=== PATIENT | female | born 1965 | race Hispanic/Latino ===

== ENCOUNTER 2020-02-12 12:13 | Observation (INO) | payer MEDICAID, OTHER ==
--- OUTSIDE RECORDS SUMMARY | 2020-02-12 12:17 | XMS REPORT ---
:1965 Author Organization eClinicalWorks Care Team Providers Name Role Phone Deluca, Na Provider Role Unavailable Allergies, Adverse Reactions, Alerts Substance Reaction Event Type N.K.D.A. Info Not Available Non Drug Allergy Problems Problem Type Condition Code Onset Dates Condition Statu s Problem Hyperlipidemia E78.5 Active Problem Adult general medical exam Z00.00 A ctive Problem Essential hypertension I10 Activ e Problem Abnormal mammogram R92.8 Active Assessment Elevated LFTs R79.89 Active Problem Encounter for vision screening Z01.00 Active Problem Abnormal mammogram of right breast R92.8 Active Problem Hyponatremia E87.1 Active Problem Bilateral edema of lower extremity R60.0 Active Problem Abnormality of right breast on R92.8 Active screening mammogram Problem Elevated TSH R79.89 Active Assessment Schizoaffective disorder, F25.9 Ac tive unspecified type Assessment Essential hypertension I10 Activ e Assessment History of recent fall Z91.81 Activ e Assessment Right ankle swelling M25.471 Active Problem Schizoaffective disorder, F25.9 Ac tive unspecified type Assessment Hypothyroidism E03.9 Active Problem Hypothyroidism E03.9 Active Assessment Hyperlipidemia E78.5 Active Problem Obesity E66.9 Active Medications Medication Code Code Instructions Start End Status Dosage System Date Date Lisinopril [facility] 42875235860 40 MG Orally Active 1 ta blet Once a day Hydrochlorothiazide [facility] 63864546145 25 MG Orally Act evelin 1 tablet Once a day in the morning Olanzapine ND 12152169944 10 MG Orally Active 1 ta blet Once a day Levothyroxine Sodium [facility] 28994852333 25 MCG Orally A ctive 1 tablet Once a day in on an AM empty stomach in the morning Trazodone HCl [facility] 87619914835 50 MG Orally Active 1 tablet Once a day at bedtime as needed Lisinopril [facility] 47299450045 40 MG Orally Active 1 ta blet Once a day Levothyroxine Sodium [facility] 35208662685 50 MCG Orally A ctive 1 tablet Once a day on an empty stomach in the morning Divalproex Sodium [facility] 79331073665 500 MG Orally Acti ve 2 tablets Benztropine Mesylate ND 47611124687 1 MG Orally Sep 18, Act evelin 1 tablet twice a day as 2018 at needed for bedtime shaking Losartan [facility] 62039091551 50-12.5 MG Active 1 tablet Potassium-HCTZ Orally Once a day Levothyroxine Sodium [facility] 05627795210 50 MCG Orally A ctive 1 tablet Once a day on an empty stomach in the morning Metoprolol Tartrate [facility] 46865159012 50 MG Orally Act evelin 1 tablet Twice a day in AM and 2 tablets in PM Olanzapine [facility] 93553233146 5 MG Orally Active 1 tab let Once a day Results No Known Results Summary Purpose eClinicalWorks Submission
--- OUTSIDE RECORDS SUMMARY | 2020-02-12 12:17 | XMS REPORT | Continuity of Care Document ---
:1965 Author Organization [facility] t Address [address] [place] [id number] Care Team Providers Name Role Phone Unavailable Unavailable Unavailable Problems Condition Condition Condition Status Onset Resolution Last Treating Co mments Source Name Details Category Date Date Treatment Clinician Date Essential Essential Problem Active [facility] hypertensi hypertensi Fany kes - [facility] Hypothyroi Hypothyroi Problem Active [facility] Hyperlipid Hyperlipid Problem Active [facility] emia emia [facility] Schizoaffe Schizoaffe Problem Active [facility] ctive ctive [facility] - disorder, disorder, Franck mauricio unspecifie unspecifie l d type d type [facility] Adult Adult Problem Active [facility] - medical medical Memoria exam exam l Outpati ent Clinics Obesity Obesity Problem Active [facility] Bilateral Bilateral Problem Active [facility] edema of edema of [facility] - lower lower [facility] extremity extremity l Outpati ent Clinics Elevated Elevated Problem Active [facility] T[facility] Hyponatrem Hyponatrem Problem Active [facility] ia ia [facility] Abnormalit Abnormalit Problem Active [facility] y of right y of right Fany kes - breast on breast on Franck mauricio screening screening l mammogram mammogram Outp ati ent Clinics Encounter Encounter Problem Active [facility] for vision for vision Fany kes - screening screening Franck mauricio l [facility] Allergies, Adverse Reactions, Alerts This patient has no known allergies or adverse reactions. Medications Ordered Filled Start Stop Current Ordering Indication Dosage Frequency Signature Comments Components Source Medication Medication Date Date Medication? Clinician (SIG) Name Name Metoprolol Metoprolol Yes Na Deluca [address] [facility] Tartrate Tartrate 4-17 in AM and Fany kes - 00:00: 2 tablets Memoria 00 in PM l [facility] ent Clinics Hydrochloro Hydrochloro Yes Na Deluca [address] [facility] thiazide thiazide 3-16 in the [facility] - 00:00: morning Memoria 00 [facility] Lisinopril Lisinopril 2017-07 Yes Na Deluca [address] [facility] 1-16 [facility] - 00:00: Memoria 00 [facility] Benztropine Benztropine Yes Na Deluca [address] [facility] Mesylate Mesylate 2-21 at bedtime L ukes - 00:00: Memoria 00 [facility] Olanzapine Olanzapine Yes Na Deluca [address] [facility] Olanzapine Olanzapine Yes Na Deluca [address] [facility] Levothyroxi Levothyroxi Yes Na Deluca [address] [facility] ne Sodium ne Sodium on an Luke s - empty [facility] stomach [facility] Divalproex Divalproex Yes Na Deluca [address] [address] Sodium Sodium [facility] Losartan Losartan Yes Na Deluca [address] Potassium-H Potassium-H L [facility] Levothyroxi Levothyroxi Yes Na Deluca [address] [facility] ne Sodium ne Sodium on an Luke s - empty Memoria stomach in the [facility] Trazodone Trazodone Yes Na Deluca [address] [facility] HCl HCl at bedtime [facility] - as needed [facility] Lisinopril Lisinopril Yes Na Deluca [address] [facility] Immunizations Ordered Filled Immunization Date Status Comments [facility] e Immunization Name Name Afluria single dose Afluria single dose 2019-04-[address] [facility] 00[facility]00 [facility] Afluria Afluria 2018-06-[address] [facility] 00[facility]00 [facility] Procedures This patient has no known procedures. Encounters Start End Encounter Admission Attending Care Care Encounter Source Date/Time Date/Time Type Type Clinicians Facility Department ID 2020-02-10 2020-02-10 Outpatient [facility] [id number] [facility] 09:56:00 09:56:00 [place] [employer] [facility] Medicine Medicine Outpati ent Clinics 2020-01-11 2020-01-11 [facility] [id number] [facility] 10:20:00 10:20:00 [place] [employer] [facility] l Medicine Outpati ent Clinics 2019-12-14 2019-12-14 [facility] [id number] 14:00:00 14:00:00 [place] [employer] [facility] Medicine Outpati ent Clinics 2019-11-13 2019-11-13 [facility] [id number] 14:20:00 14:20:00 [place] [employer] [facility] l Medicine Outpati ent Clinics 2019-10-12 2019-10-12 [facility] [id number] 14:00:00 14:00:00 t [employer] [facility] Medicine Outpati ent Clinics 2019-09-07 2019-09-07 [facility] [id number] 10:39:00 10:39:00 t [employer] [facility] Medicine l Medicine Outpati ent Clinics 2019-07-07 2019-07-07 [facility] [id number] 08:40:00 08:40:00 t [employer] [facility] l Medicine Outpati ent Clinics 2019-06-04 2019-06-04 [facility] [id number] 10:39:00 10:39:00 t [employer] [facility] Medicine Medicine Outpati ent Clinics 2019-06-03 2019-06-03 [facility] [id number] [facility] 01:20:00 01:20:00 [place] [employer] [facility] l Medicine Outpati ent Clinics 2019-04-07 2019-04-07 [facility] [id number] 13:40:00 13:40:00 [place] [employer] [facility] Medicine Outpati ent Clinics 2018-11-07 2018-11-07 [facility] [id number] 13:39:00 13:39:00 [place] [employer] [facility] Medicine Outpati ent Clinics 2018-09-12 2018-09-12 [facility] [id number] 09:15:00 09:15:00 [place] [employer] [facility] Medicine Outpati ent Clinics 2018-06-13 2018-06-13 [facility] [id number] 08:45:00 08:45:00 t [employer] [facility] Medicine Outpati ent Clinics 2018-03-14 2018-03-14 [facility] [id number] 09:30:00 09:30:00 t [employer] [facility] Medicine Outpati ent Clinics 2018-02-13 2018-02-13 [facility] [id number] 09:15:00 09:15:00 t [employer] [facility] Medicine Outpati ent Clinics 2017-11-14 2017-11-14 [facility] [id number] 09:15:00 09:15:00 t [employer] [facility] Medicine Outpati ent Clinics Results This patient has no known results.
--- OUTSIDE RECORDS SUMMARY | 2020-02-12 12:17 | XMS REPORT ---
[...] Activ e Problem Abnormal mammogram R92.8 Active Problem Encounter for vision screening Z01.00 Active Problem Abnormal mammogram of right breast R92.8 Active Problem Hyponatremia E87.1 Active Problem Bilateral edema of lower extremity R60.0 Active Problem Abnormality of right breast on R92.8 Active screening mammogram Problem Elevated TSH R79.89 Active Assessment Schizoaffective disorder, F25.9 Ac tive unspecified type Assessment Essential hypertension I10 Activ e Problem Schizoaffective disorder, F25.9 Ac tive unspecified type Assessment Hypothyroidism E03.9 Active Problem Hypothyroidism E03.9 Active Assessment Hyperlipidemia E78.5 Active Problem Obesity E66.9 Active Medications Medication Code Code Instructions Start End Status Dosage System Date Date Losartan [facility] 43064533910 50-12.5 MG Active 1 tablet Potassium-HCTZ Orally Once a day Levothyroxine Sodium ND 81042712872 25 MCG Orally A ctive 1 tablet Once a day in on an AM empty stomach in the morning Metoprolol Tartrate ND 62736676566 50 MG Orally October Act evelin 1 tablet Twice a day , with food 2019 Levothyroxine Sodium ND 00885558629 50 MCG Orally A ctive 1 tablet Once a day on an empty stomach in the morning Benztropine Mesylate ND 98144787149 1 MG Orally Sep 18 Act evelin 1 tablet twice a day as 2018 at needed for bedtime shaking Trazodone HCl ND 06453500186 50 MG Orally Active 1 tablet Once a day at bedtime as needed Divalproex Sodium ND 95135476384 500 MG Orally Acti ve 2 tablets Levothyroxine Sodium [facility] 01719799191 50 MCG Orally A ctive 1 tablet Once a day on an empty stomach in the morning Lisinopril [facility] 01687919485 40 MG Orally Active 1 ta blet Once a day Hydrochlorothiazide [facility] 37120781562 25 MG Orally Act evelin 1 tablet Once a day in the morning Olanzapine [facility] 51122141365 5 MG Orally Active 1 tab let Once a day Lisinopril [facility] 56404854579 40 MG Orally Active 1 ta blet Once a day Olanzapine [facility] 60262115446 10 MG Orally Active 1 ta blet Once a day Results No Known Results Summary Purpose eClinicalWorks Submission
--- OUTSIDE RECORDS SUMMARY | 2020-02-12 12:17 | XMS REPORT ---
[...] disorder, F25.9 Ac tive unspecified type Assessment Hyperlipidemia E78.5 Active Problem Schizoaffective disorder, F25.9 Ac tive unspecified type Assessment Hypothyroidism E03.9 Active Problem Hypothyroidism E03.9 Active Assessment Essential hypertension I10 Activ e Problem Obesity E66.9 Active Medications Medication Code Code Instructions Start End Status Dosage System Date Date Lisinopril [facility] 18321764145 40 MG Orally Active 1 ta blet Once a day Olanzapine [facility] 50564851794 5 MG Orally Active 1 tab let Once a day Losartan [facility] 32950669119 50-12.5 MG Active 1 tablet Potassium-HCTZ Orally Once a day Olanzapine [facility] 93982358367 10 MG Orally Active 1 ta blet Once a day Levothyroxine Sodium ND 94963461958 50 MCG Orally A ctive 1 tablet Once a day on an empty stomach in the morning Benztropine Mesylate ND 05065163514 1 MG Orally Sep 18, Act evelin 1 tablet twice a day as 2018 at needed for bedtime shaking Metoprolol Tartrate ND 20422840862 50 MG Orally Act evelin 1 tablet Twice a day with food Trazodone HCl [facility] 77270828337 50 MG Orally Active 1 tablet Once a day at bedtime as needed Divalproex Sodium [facility] 29945177113 500 MG Orally Acti ve 2 tablets Levothyroxine Sodium [facility] 98775303968 50 MCG Orally A ctive 1 tablet Once a day on an empty stomach in the morning Lisinopril [facility] 67087387614 40 MG Orally Active 1 ta blet Once a day Hydrochlorothiazide [facility] 39012305468 25 MG Orally Act evelin 1 tablet Once a day in the morning Levothyroxine Sodium [facility] 02621708408 25 MCG Orally A ctive 1 tablet Once a day in on an AM empty stomach in the morning Results No Known Results Summary Purpose eClinicalWorks Submission
--- OUTSIDE RECORDS SUMMARY | 2020-02-12 12:17 | XMS REPORT ---
:1965 Author Organization eClinicalWorks Care Team Providers Name Role Phone Deluca, Na Provider Role Unavailable Allergies No Known Allergies Problems Problem Type Condition Code Onset Dates Condition Statu s Problem Hyperlipidemia E78.5 Active Problem Adult general medical exam Z00.00 A ctive Problem Essential hypertension I10 Activ e Problem Schizoaffective disorder, F25.9 Ac tive unspecified type Problem Hypothyroidism E03.9 Active Problem Obesity E66.9 Active Problem Abnormal mammogram R92.8 Active Problem Encounter for vision screening Z01.00 Active Problem Abnormal mammogram of right breast R92.8 Active Problem Hyponatremia E87.1 Active Problem Bilateral edema of lower extremity R60.0 Active Problem Abnormality of right breast on R92.8 Active screening mammogram Problem Elevated TSH R79.89 Active Medications No Known Medications Results No Known Results Summary Purpose eClinicalWorks Submission
[2020-02-12 14:10] LABS: Absolute Lymphocytes (CBC) 1.6 K/uL (0.7-4.9); Basophils % 0.8 % (0-1.3); Hematocrit 34.1 % (36.0-45.0); Lymphocytes % 35.2 % (15.3-44.8); MPV 8.9 fL (7.6-11.3); RBC Red Blood Cell Count 3.68 M/uL (3.86-4.86)
[2020-02-12 14:22] LABS: BUN Blood Urea Nitrogen 7 mg/dL (7-18); Bicarbonate 25 mmol/L (21-32); Glucose Level 114 mg/dL (74-106); Potassium 3.9 mmol/L (3.5-5.1); Sodium Level 128 mmol/L (136-145)
[2020-02-12 14:24] LABS: Urine Blood NEGATIVE (NEG); Urine Glucose NEGATIVE (NEG); Urine Protein NEGATIVE (NEG); Urine Specific Gravity 1.015 (1.005-1.030); Urine pH 7.5 (5.0-7.0)
[2020-02-12 14:34] LABS: Platelet Estimate ADEQ; Urine White Blood Cell Casts OK
[2020-02-12 14:35] LABS: Blood Morphology Comment NOT SEEN (NOT SEEN)
--- NOTE | 2020-02-12 14:37 | ER ---
Nurse's Notes [facility] Name: Norma Hamilton Age: 54 yrs Sex: Female : 1965 Arrival Date: 02/12/2020 Time: 12:17 Bed 16 Private MD: Alise Deluca Diagnosis: Hypo-osmolality and hyponatremia;Acute upper respiratory infection, unspecified Presentation: 02/11 12:37 Chief complaint: Patient states: c/o body aches, cough, sob when walking, fever x a few ks7 days. states her brother has been sick with same symptoms, denies exposure to ren. Coronavirus screen: Patient reports a cough. Patient reports shortness of breath or difficulty breathing. Patient denies measured and/or subjective temperature greater than 100.4F prior to today's visit. Patient denies travel on a cruise ship or to a country the [facility] currently lists as an affected area. Patient denies contact with known and/or suspected case of COVID-19. Proceed with normal triage. Patient instructed to continue to wear a mask when interacting with others. Patient moved to private room, placed in contact and droplet isolation with eye protection until further assessment. Prior COVID test. Coronavirus screen: Ebola Screen: Patient negative for fever greater than or equal to 101.5 degrees Fahrenheit, and additional compatible Ebola Virus Disease symptoms Patient denies exposure to infectious person. Patient denies travel to an Ebola-affected area in the 21 days before illness onset. Initial Sepsis Screen: Does the patient meet any 2 criteria? No. Patient's initial sepsis screen is negative. Does the patient have a suspected source of infection? No. Patient's initial sepsis screen is negative. Risk Assessment: Do you want to hurt yourself or someone else? Patient reports no desire to harm self or others. Onset of symptoms was February 10, 2020. 12:37 Method Of Arrival: Ambulatory ks7 12:37 Acuity: FARNAZ 3 ks7 Triage Assessment: 12:54 General: Appears uncomfortable, well groomed, Behavior is calm, cooperative. Pain: ks7 Complains of pain in generalized body aches Pain currently is 4 out of 10 on a pain scale. Quality of pain is described as aching. Respiratory: No deficits noted. Historical: - Allergies: 12:54 No Known Allergies; ks7 - Home Meds: 12:54 benztropine 1 mg Oral tab 1 tab 2 times per day for shaking and stiffness [Active]; ks7 levothyroxine 50 mcg tab 1 tab once daily for Hypothyroidism [Active]; olanzapine 10 mg oral tab 2 tabs once daily for Depression Treatment Adjunct [Active]; hydrochlorothiazide 25 mg Oral tab 1 tab once daily for Hypertension [Active]; metoprolol tartrate 50 mg Oral tab 1 tab 3 times per day for Hypertension [Active]; lisinopril 40 mg Oral tab 1 tab once daily for Hypertension [Active]; divalproex 500 mg oral Tb24 2 tabs once daily for Migraine Prevention [Active]; trazodone 50 mg Oral tab 2 tabs nightly for sleep [Active]; - PMHx: 12:54 Hypertension; Migraines; Hypothyroidism; Depression; ks7 - Immunization history:: Adult Immunizations up to date. - Social history:: Smoking status: Patient denies any tobacco usage or history of. Screenin:56 Abuse screen: Denies threats or abuse. Nutritional screening: No deficits noted. ks7 Tuberculosis screening: No symptoms or risk factors identified. Fall Risk None identified. Assessment: 12:56 Cardiovascular: Patient's skin is warm and dry. Respiratory: Airway is patent ks7 Respiratory effort is unlabored, CARTY Breath sounds are clear. 13:32 General: pt took her BP meds, per MD order. 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 Vital Signs: 12:37 BP 149 / 73; Pulse 76; Resp 18; Temp 97(TE); Pulse Ox 100% on R/A; Weight 83.91 kg; ks7 Height 5 ft. 1 in. (154.94 cm); Pain 4/10; 12:55 BP 163 / 89; Pulse 75; Resp 18; Pulse Ox 100% on R/A; ks7 13:31 BP 179 / 115; Pulse 74; Resp 18; Pulse Ox 100% on R/A; ks7 14:03 BP 159 / 91; Pulse 68; Resp 18; Pulse Ox 99% ; Pain 3/10; ks7 16:24 BP 163 / 108; Pulse 89; Resp 18; Temp 97.9(TE); Pulse Ox 99% ; Pain 0/10; ks7 12:37 Body Mass Index 34.96 (83.91 kg, 154.94 cm) ks7 ED Course: 12:17 Patient arrived in ED. mr 12:18 Alise Deluca MD is Private Physician. mr 12:28 Daksha Lepe, YANIV is Primary Nurse. ks7 12:33 Tex Sharp MD is Attending Physician. kdr 12:40 Triage completed. ks7 12:54 Arm band placed on. ks7 12:56 ED physician to see patient. ks7 12:56 No apparent distress. pt sitting on side of bed. Per MD give pt her BP meds and a ks7 snack. Will monitor Vitals. 12:56 Patient has correct armband on for positive identification. Bed in low position. Call ks7 light in reach. Side rails up X 1. 12:56 No provider procedures requiring assistance completed. ks7 12:56 Patient did not have IV access during this emergency room visit. ks7 14:03 Chem 7 Sent. ks7 14:03 CBC with Diff Sent. ks7 14:03 COVID-19 Sent. ks7 14:23 Urine Dipstick--Ancillary (enter results) Sent. ks7 14:35 Doni Mullen MD is Hospitalizing Provider. kdr 14:51 CXR XRAY Sent. ks7 15:00 CXR XRAY In Process Unspecified. EDMS 16:25 C-Reactive Protein Sent. ks7 16:25 D-Dimer Sent. ks7 16:26 Ferritin Sent. ks7 16:39 Inserted saline lock: 20 gauge in left antecubital area, using aseptic technique. ks7 Administered Medications: No medications were administered Outcome: 14:36 Decision to Hospitalize by Provider. kdr 16:43 Admitted to Med/surg accompanied by tech, via stretcher, with chart, Report called to benton Ortega RN ext [phone]. 16:43 Condition: stable 16:43 Instructed on the need for admit. 17:42 Patient left the ED. ks7 Signatures: Dispatcher [employer] EDMS Tex Sharp MD MD kdr SterlingPrecious mr Daksha Lepe, RN RN ks7 Corrections: (The following items were deleted from the chart) 16:39 16:24 BP 163 / 108; Pulse 89bpm; Resp 18bpm; Pulse Ox 99%; Pain 0/10; ks7 ks7
--- NOTE | 2020-02-12 14:37 | EDPHYS ---
Physician Documentation [facility] Name: Norma Hamilton Age: 54 yrs Sex: Female : 1965 Arrival Date: 02/12/2020 Time: 12:17 Bed 16 Private MD: Alise Deluca ED Physician Tex Sharp HPI: 02/11 13:41 This 54 yrs old Female presents to ER via Ambulatory with complaints of kdr Congestion, Vomiting, Fever. 13:41 The patient has been feeling poorly for a few days and has a brother who has been kdr feeling equally poorly for three to four days. She c/o pain all over and subjective fever and cough. Onset: The symptoms/episode began/occurred gradually, 1 week(s) ago. Severity of symptoms: At their worst the symptoms were mild in the emergency department the symptoms are unchanged. The patient has not experienced similar symptoms in the past. The patient has not recently seen a physician. Historical: - Allergies: 12:54 No Known Allergies; ks7 - Home Meds: 12:54 benztropine 1 mg Oral tab 1 tab 2 times per day for shaking and stiffness [Active]; ks7 levothyroxine 50 mcg tab 1 tab once daily for Hypothyroidism [Active]; olanzapine 10 mg oral tab 2 tabs once daily for Depression Treatment Adjunct [Active]; hydrochlorothiazide 25 mg Oral tab 1 tab once daily for Hypertension [Active]; metoprolol tartrate 50 mg Oral tab 1 tab 3 times per day for Hypertension [Active]; lisinopril 40 mg Oral tab 1 tab once daily for Hypertension [Active]; divalproex 500 mg oral Tb24 2 tabs once daily for Migraine Prevention [Active]; trazodone 50 mg Oral tab 2 tabs nightly for sleep [Active]; - PMHx: 12:54 Hypertension; Migraines; Hypothyroidism; Depression; ks7 - Immunization history:: Adult Immunizations up to date. - Social history:: Smoking status: Patient denies any tobacco usage or history of. ROS: 13:41 Constitutional: Negative for fever, chills, and weight loss - genrealized aches and kdr pains Eyes: Negative for injury, pain, redness, and discharge, ENT: Negative for injury, pain, and discharge, Neck: Negative for injury, pain, and swelling, Cardiovascular: Negative for chest pain, palpitations, and edema, Abdomen/GI: Negative for abdominal pain, nausea, vomiting, diarrhea, and constipation, Back: Negative for injury and pain, : Negative for injury, bleeding, discharge, and swelling, MS/Extremity: Negative for injury and deformity, Skin: Negative for injury, rash, and discoloration, Neuro: Negative for headache, weakness, numbness, tingling, and seizure activity. Psych: Negative for depression, anxiety, suicide ideation, homicidal ideation, and hallucinations, Allergy/Immunology: Negative for hives, rash, and allergies, Endocrine: Negative for neck swelling, polydipsia, polyuria, polyphagia, and marked weight changes, Hematologic/Lymphatic: Negative for swollen nodes, abnormal bleeding, and unusual bruising. 13:41 Respiratory: Positive for cough, with no reported sputum, shortness of breath, Negative for dyspnea on exertion, hemoptysis, orthopnea. Exam: 13:41 Constitutional: This is a well developed, well nourished patient who is awake, alert, kdr and in no acute distress. Head/Face: Normocephalic, atraumatic. Eyes: Pupils equal round and reactive to light, extra-ocular motions intact. Lids and lashes normal. Conjunctiva and sclera are non-icteric and not injected. Cornea within normal limits. Periorbital areas with no swelling, redness, or edema. Neck: Trachea midline, no thyromegaly or masses palpated, and no cervical lymphadenopathy. Supple, full range of motion without nuchal rigidity, or vertebral point tenderness. No Meningismus. Chest/axilla: Normal chest wall appearance and motion. Nontender with no deformity. No lesions are appreciated. Cardiovascular: Regular rate and rhythm with a normal S1 and S2. No gallops, murmurs, or rubs. Normal PMI, no JVD. No pulse deficits. Respiratory: Lungs have equal breath sounds bilaterally, clear to auscultation and percussion. No rales, rhonchi or wheezes noted. No increased work of breathing, no retractions or nasal flaring. Abdomen/GI: Soft, non-tender, with normal bowel sounds. No distension or tympany. No guarding or rebound. No evidence of tenderness throughout. Back: No spinal tenderness. No costovertebral tenderness. Full range of motion. Skin: Warm, dry with normal turgor. Normal color with no rashes, no lesions, and no evidence of cellulitis. MS/ Extremity: Pulses equal, no cyanosis. Neurovascular intact. Full, normal range of motion. Neuro: Awake and alert, GCS 15, oriented to person, place, time, and situation. Cranial nerves II-XII grossly intact. Motor strength 5/5 in all extremities. Sensory grossly intact. Cerebellar exam normal. Normal gait. Psych: Awake, alert, with orientation to person, place and time. Behavior, mood, and affect are within normal limits. Vital Signs: 12:37 BP 149 / 73; Pulse 76; Resp 18; Temp 97(TE); Pulse Ox 100% on R/A; Weight 83.91 kg; ks7 Height 5 ft. 1 in. (154.94 cm); Pain 4/10; 12:55 BP 163 / 89; Pulse 75; Resp 18; Pulse Ox 100% on R/A; ks7 13:31 BP 179 / 115; Pulse 74; Resp 18; Pulse Ox 100% on R/A; ks7 14:03 BP 159 / 91; Pulse 68; Resp 18; Pulse Ox 99% ; Pain 3/10; ks7 16:24 BP 163 / 108; Pulse 89; Resp 18; Temp 97.9(TE); Pulse Ox 99% ; Pain 0/10; ks7 12:37 Body Mass Index 34.96 (83.91 kg, 154.94 cm) ks7 MDM: 13:41 Data reviewed: vital signs, nurses notes, lab test result(s), radiologic studies. kdr Counseling: I had a detailed discussion with the patient and/or guardian regarding: the historical points, exam findings, and any diagnostic results supporting the discharge/admit diagnosis, lab results, radiology results, the need for outpatient follow up. 14:36 Patient medically screened. [facility] 02/11 13:24 Order name: COVID-19 kdr 02/11 13:41 Order name: CBC with Diff [facility] 02/11 13:41 Order name: Chem 7; Complete Time: 14:28 kdr 02/11 14:20 Order name: Urine Dipstick--Ancillary (enter results); Complete Time: 14:28 eb 02/11 14:35 Order name: CBC Smear Scan [facility] 02/11 15:33 Order name: C-Reactive Protein [facility] 02/11 15:33 Order name: D-Dimer [facility] 02/11 15:33 Order name: Ferritin [facility] 02/11 15:33 Order name: Urinalysis [facility] 02/11 15:33 Order name: Basic Metabolic Panel [facility] 02/11 15:33 Order name: Basic Metabolic Panel [facility] 02/11 15:33 Order name: CBC with Automated Diff [facility] 02/11 15:33 Order name: CBC with Automated Diff [facility] 02/11 15:33 Order name: Hemoglobin A1c [facility] 02/11 13:24 Order name: CXR XRAY [facility] 02/11 13:41 Order name: Urine Dipstick-Ancillary (obtain specimen); Complete Time: 14:23 [facility] 02/11 15:33 Order name: Heart Healthy [facility] 02/11 15:33 Order name: Hemoglobin A1c [facility] 02/11 15:33 Order name: Magnesium [facility] 02/11 15:33 Order name: Magnesium [facility] Administered Medications: No medications were administered Disposition: 02/12/20 14:36 Hospitalization ordered by Doni Mullen for Observation. Preliminary diagnosis are Hypo-osmolality and hyponatremia, Acute upper respiratory infection, unspecified. - Bed requested for Telemetry/MedSurg (observation). - Status is Observation. ks7 - Condition is Fair. - Problem is new. - Symptoms have improved. Signatures: Dispatcher [employer] [facility] Tex Sharp MD MD [facility] Marnie Montanez Kathleen RN RN ks7 Corrections: (The following items were deleted from the chart) 15:40 14:36 Hospitalization Ordered by Doni Mullen MD for Observation. Preliminary eb diagnosis is Hypo-osmolality and hyponatremia; Acute upper respiratory infection, unspecified. Bed requested for Telemetry/MedSurg (observation). Status is Observation. Condition is Fair. Problem is new. Symptoms have improved. [facility] 17:42 15:40 02/12/2020 14:36 Hospitalization Ordered by Doni Mullen MD for Observation. ks7 Preliminary diagnosis is Hypo-osmolality and hyponatremia; Acute upper respiratory infection, unspecified. Bed requested for Telemetry/MedSurg (observation). Status is Observation. Condition is Fair. Problem is new. Symptoms have improved. eb
--- NOTE | 2020-02-12 15:08 | RAD REPORT ---
EXAM DESCRIPTION: RAD - Chest Single View - 02/12/2020 2:59 pm CLINICAL HISTORY: COUGH Chest pain. COMPARISON: No comparisons FINDINGS: Portable technique limits examination quality. Elevated right hemidiaphragm is noted without clear etiology. The lungs are grossly clear. The heart is normal in size. No displaced fractures. IMPRESSION: No acute intrathoracic process suspected.
[2020-02-12] MEDS ORDERED: ONDANSETRON 4 MG/2 ML VIAL IV PRN (15:28)
[2020-02-12] MEDS ORDERED: ACETAMINOPHEN 500 MG TAB PO PRN (15:28)
--- NOTE | 2020-02-12 15:37 | P.HP ---
Certification for Inpatient Patient admitted to: Observation With expected LOS: <2 Midnights Patient will require the following post-hospital care: None Practitioner: I am a practitioner with admitting privileges, knowledge of patient current condition, hospital course, and medical plan of care. Services: Services provided to patient in accordance with Admission requirements found in Title 42 Section 412.3 of the Code of Federal Regulations <Leroy Yost - Last Filed: 02/12/20 15:48> Patient History Date of Service: 02/12/20 Primary Care Provider: Alise Deluca MD Reason for admission: Hyponatremia/fever History of Present Illness: 54-year-old female with past medical history of hypothyroidism, essential hypertension, chronic migraines and insomnia presents to the emergency room complaining of worsening body aches, feeling of shortness of breath, vomiting and fever. Patient states that she has been feeling this way for the past 2-3 days and has progressively worsened. Patient states that her brother tested positive for Covid 19 3 days ago and she believes this is the same. In the emergency room patient's blood work is fairly unremarkable. She is noted to have a sodium level of 128 with a slightly elevated glucose of 114. CRP, ferritin and D-dimer are pending. Blood pressure is slightly elevated at 159/91. Pulse rate of 68, respiratory of 18 in oxygen saturations of 99% on room air. Has not had any episodes of vomiting so far. Has not seen a PCP in the near recent past. On physical exam patient is calm, alert and oriented x3. She is Yemeni- speaking only. She is in no distress. She is not requiring O2 support. She is complaining of generalized body aches and fever. States she had a fever of 102 at home this more an took Tylenol at home. On arrival to ED temperature was measured at 97 degree. Chest x-ray unremarkable. States she was in some discomfort prior to arriving to the ED but feels better now. Denies smoking drugs and drinking. Will placed in observation and further evaluate. Home medications list reviewed: Yes - Past Medical/Surgical History Diabetic: No -: Essential hypertension -: Hypothyroidism -: Depression -: Insomnia -: Migraine -: Hysterectomy Psychosocial/ Personal History: Lives at home with - Family History Family History: Reviewed- Non-Contributory - Social History Smoking Status: Never smoker Alcohol use: No CD- Drugs: No Caffeine use: No Place of Residence: Home <Leroy Yost - Last Filed: 02/12/20 15:48> Date of Service: 02/12/20 <Bubba Mullen - Last Filed: 02/12/20 16:36> Allergies No Known Allergies Allergy (Verified 12/08/12 12:20) Review of Systems General: Fever, Malaise Eyes: Unremarkable ENT: Unremarkable Respiratory: Cough Cardiovascular: Unremarkable Gastrointestinal: Vomiting Genitourinary: Unremarkable Musculoskeletal: Unremarkable Integumentary: Unremarkable Neurological: Unremarkable <Leroy Yost - Last Filed: 02/12/20 15:48> Physical Examination - Vital Signs Temperature: 97 F Blood Pressure: 149/73 Pulse: 76 Respirations: 18 Pulse Ox (%): 100 (RA) - Physical Exam General: Alert, In no apparent distress, Oriented x3, Cooperative HEENT: Atraumatic, Normocephalic, PERRLA Neck: Supple, Other (Trachea midline) Respiratory: Clear to auscultation bilaterally, Normal air movement Cardiovascular: No edema, Normal pulses, Regular rate/rhythm Capillary refill: <2 Seconds Gastrointestinal: Normal bowel sounds, Soft and benign, Non-distended Musculoskeletal: No swelling, No contractures, No erythema Integumentary: No rashes, No breakdown, No significant lesion, No tenderness/swelling Neurological: Normal gait, Normal speech, Normal strength at 5/5 x4 extr, Normal tone Other Physical/Emotional Findings: Lives at home with . Cooperative and pleasant. - Studies Laboratory Data (last 24 hrs) 02/12/20 13:58: Sodium 128 L, Potassium 3.9, BUN 7, Creatinine 0.49 L, Glucose 114 H 02/12/20 13:58: WBC 4.5, Hgb 12.4, Hct 34.1 L, Plt Count 167 <Leroy Yost - Last Filed: 02/12/20 15:48> - Studies Laboratory Data (last 24 hrs) 02/12/20 13:58: Sodium 128 L, Potassium 3.9, BUN 7, Creatinine 0.49 L, Glucose 114 H 02/12/20 13:58: WBC 4.5, Hgb 12.4, Hct 34.1 L, Plt Count 167 Microbiology Data (last 24 hrs): 02/12/20 13:50 Nasopharnyx Coronavirus COVID-19 PCR - Final <Bubba Mullen - Last Filed: 02/12/20 16:36> Assessment and Plan - Plan Impression: Hyponatremia complicated by recent episodes of vomiting and recent exposure to known Covid 19 positive relative: Essential hypertension: Chronic migraines: Insomnia: Depression: Plan: Hyponatremia complicated by recent episodes of vomiting and recent exposure to known Covid 19 positive relative: Patient is not requiring O2 support at this time. Will start with gentle hydration at 50 mL/HR, dexamethasone 6 mg daily, Covid 19 screen pending, D-dimer, CRP and ferritin pending. Essential hypertension: Patient noted to have elevated blood pressure. Will resume home medications and adjust accordingly. Chronic migraines: Denies headache at this time. Will resume home medications. Insomnia: Will resume home medication. Depression: In good spirits and cooperative. Will resume all medications. Discharge Plan: Home Plan to discharge in: 48 Hours - Advance Directives Does patient have a Living Will: No Does patient have a Durable POA for Healthcare: No - Code Status/Comfort Care Code Status Assessed: Yes Time Spent Managing Pts Care (In Minutes): 55 <Leroy Yost - Last Filed: 02/12/20 15:48> - Plan The patient was seen and examined and findings were discussed. Agree with the assessment and plan as noted by the SONALI <Bubba Mullen - Last Filed: 02/12/20 16:36>
[2020-02-12] MEDS: NA CHLORIDE 0.9% 1,000 ML IV SCH (16:00)
[2020-02-12 16:47] LABS: Ferritin 119.2 ng/mL (8-388)
[2020-02-12 16:53] LABS: C-Reactive Protein < 2.90 mg/L (<3.00)
[2020-02-12] MEDS: ENOXAPARIN 40 MG/0.4 ML SQ SCH (17:12)
[2020-02-12 17:49] VITALS: BMI 29.2
[2020-02-12] MEDS ORDERED: METOPROLOL TAR 50 MG TAB ONE (21:14)
[2020-02-13] MEDS ORDERED: HYDRALAZINE HCL 20 MG/ML VIAL IV PRN (00:49)
[2020-02-13 04:52] LABS: Absolute Lymphocytes (CBC) 1.4 K/uL (0.7-4.9); Basophils % 0.4 % (0-1.3); Hematocrit 36.8 % (36.0-45.0); Lymphocytes % 33.9 % (15.3-44.8); MPV 8.1 fL (7.6-11.3); RBC Red Blood Cell Count 3.99 M/uL (3.86-4.86)
[2020-02-13 05:05] LABS: BUN Blood Urea Nitrogen 5 mg/dL (7-18); Bicarbonate 24 mmol/L (21-32); Glucose Level 100 mg/dL (74-106); Magnesium 2.1 mg/dL (1.8-2.4); Potassium 3.8 mmol/L (3.5-5.1); Sodium Level 136 mmol/L (136-145)
[2020-02-13] MEDS: NA CHLORIDE 0.9% 1,000 ML IV SCH (07:49)
[2020-02-13] MEDS: ENOXAPARIN 40 MG/0.4 ML SQ SCH (07:50)
[2020-02-13] MEDS ORDERED: dexAMETHasone 10 MG/ML VIAL IV SCH (09:00)
[2020-02-13] MEDS ORDERED: POTASSIUM CL SA 10 MEQ TAB PO ONE (09:00)
[2020-02-13 11:04] VITALS: BP 152/85; TEMP 97
--- NOTE | 2020-02-13 11:25 | P.DS ---
Admission Date: 02/12/20 Discharge Date: 02/13/20 Primary Care Provider: Alise Deluca MD Disposition: ROUTINE DISCHARGE Comment: Covid Negative Discharge Condition: GOOD Reason for Admission: Hyponatremia/fever - Problems (1) Hyponatremia Current Visit: Yes Status: Resolved Brief History of Present Illness: 54-year-old female with past medical history of hypothyroidism, essential hypertension, chronic migraines and insomnia presents to the emergency room complaining of worsening body aches, feeling of shortness of breath, vomiting and fever. Patient states that she has been feeling this way for the past 2-3 days and has progressively worsened. Patient states that her brother tested positive for Covid 19 3 days ago and she believes this is the same. In the emergency room patient's blood work is fairly unremarkable. She is noted to have a sodium level of 128 with a slightly elevated glucose of 114. CRP, ferritin and D-dimer are pending. Blood pressure is slightly elevated at 159/91. Pulse rate of 68, respiratory of 18 in oxygen saturations of 99% on room air. Has not had any episodes of vomiting so far. Has not seen a PCP in the near recent past. On physical exam patient is calm, alert and oriented x3. She is Wallisian- speaking only. She is in no distress. She is not requiring O2 support. She is complaining of generalized body aches and fever. States she had a fever of 102 at home this more an took Tylenol at home. On arrival to ED temperature was measured at 97 degree. Chest x-ray unremarkable. States she was in some discomfort prior to arriving to the ED but feels better now. Denies smoking drugs and drinking. Will placed in observation and further evaluate. Hospital Course: During this hospitalization patient was admitted for cough and hyponatremia. She was noted to have a low-sodium 128 on admission and a cough. Patient states that she has been feeling some malaise and the cough had progressively worsened. She also states that her brother has tested positive for Covid -19 and there was concern that the patient may be positive as well. Patient's Covid results are negative. She still complains of a cough and will be discharged with cough medication. Instructed to stay away from family members that have tested positive and 2 socially distance, wash her hands and wear a face mask. Patient is stable. Her hyponatremia has resolved with the morning readings of 136. She tolerated gentle IV hydration and is at her baseline. She is not requiring O2 support and her oxygen saturations are 99% on room air. Patient can be discharged home to follow up with PCP. Vital Signs/Physical Exam: Temp Pulse Resp BP Pulse Ox 97 F 62 18 152/85 H 98 02/13/20 08:00 02/13/20 08:00 02/13/20 08:00 02/13/20 08:00 02/13/20 08:00 General: Alert, In no apparent distress, Oriented x3 HEENT: Atraumatic, Normocephalic, PERRLA Neck: Supple, No Thyromegaly Respiratory: Clear to auscultation bilaterally, Normal air movement Cardiovascular: No edema, Normal pulses, Regular rate/rhythm, Normal S1 S2 Capillary refill: <2 Seconds Gastrointestinal: Normal bowel sounds, Soft and benign Musculoskeletal: No clubbing, No swelling, No contractures Integumentary: No rashes, No breakdown, No tenderness/swelling Neurological: Normal gait, Normal speech, Normal strength at 5/5 x4 extr, Normal tone Other Physical/Emotional Findings: Lives at home with . Cooperative and pleasant. Laboratory Data at Discharge: WBC 4.3 K/uL (4.3-10.9) 02/13/20 04:40 Hgb 13.2 g/dL (12.0-15.0) 02/13/20 04:40 Hct 36.8 % (36.0-45.0) 02/13/20 04:40 Plt Count 234 K/uL (152-406) D 02/13/20 04:40 Sodium 136 mmol/L (136-145) 02/13/20 04:40 Potassium 3.8 mmol/L (3.5-5.1) 02/13/20 04:40 BUN 5 mg/dL (7-18) L 02/13/20 04:40 Creatinine 0.30 mg/dL (0.55-1.3) L 02/13/20 04:40 Glucose 100 mg/dL (74-106) 02/13/20 04:40 Magnesium 2.1 mg/dL (1.8-2.4) 02/13/20 04:40 Imagings Data: Chest x-ray with no acute pathology noted. Home Medications: Benztropine Mesylate [Cogentin*] 1 mg PO DAILYPRN PRN 02/12/20 Divalproex ER [Depakote *ER] 100 mg PO BEDTIME 02/12/20 Levothyroxine [Synthroid*] 50 mcg PO DAILY 02/12/20 Lisinopril [Zestril] 40 mg PO DAILY 02/12/20 Metoprolol Tartrate [Lopressor*] 100 mg PO DAILY AT SUPPER 02/12/20 OLANZapine [Zyprexa*] 10 mg PO BID 02/12/20 Trazodone [Desyrel*] 100 mg PO BEDTIME 02/12/20 hydroCHLOROthiazide [Hydrochlorothiazide*] 25 mg PO DAILY 02/12/20 Benzonatate [Tessalon Perle] 100 mg PO TID 5 Days #15 cap 02/13/20 New Medications: Benzonatate [Tessalon Perle] 100 mg PO TID 5 Days #15 cap Patient Discharge Instructions: Continue cough medication. Continue just socially distance, wash and wear mask. Stay away from family members who are symptomatic and/or have tested positive for Covid 19. Diet: Regular Activity: Ad sonia Followup: Alise Deluca DO [Primary Care Provider] - Time spent managing pt's care (in minutes): 55
[2020-02-13 12:27] VITALS: O2SAT 97
[2020-02-13] MEDS ORDERED: METOPROLOL TAR 50 MG TAB PO ONE (20:45)
== END 2020-02-13 13:00 | disposition home or self-care (01) ==
LOC: ER 12:13 → 4TH 15:21
PROVIDERS: ADMIT Family Medicine; ATTEND Family Medicine
DX: E87.1 Hypo-osmolality and hyponatremia (principal); R50.9 Fever, unspecified; R06.02 Shortness of breath; R05 Cough; Z20.828 Contact with and (suspected) exposure to other viral communicable diseases; R11.10 Vomiting, unspecified; J06.9 Acute upper respiratory infection, unspecified; I10 Essential (primary) hypertension; G47.00 Insomnia, unspecified; F32.9 Major depressive disorder, single episode, unspecified; E03.9 Hypothyroidism, unspecified; Z86.69 Personal history of other diseases of the nervous system and sense organs; Z79.899 Other long term (current) drug therapy
CPT/HCPCS: 85025 ×2; 80048 ×2; 36415; 83735; 85379; 81003; 83036; 82728; 86140; 71045; 94760 ×3; 99285; U0002; J0360; J1650 ×2; J1100; J7030 ×2; G0378 ×3